=== PATIENT | female | born 1970 | race African-American/Black ===

== ENCOUNTER 2024-01-28 18:58 | Emergency (ER) | payer SELFPAY ==
[~2024-01-28] VITALS: Ht 167.6 cm; Wt 95.0 kg
[2024-01-28 19:04] VITALS: O2SAT 97
[2024-01-28] MEDS: ADENOSINE 3 MG/ML 2ML VIAL IV ONE (19:15)
[2024-01-28 20:57] LABS: BASOPHILS % 0.7 % (0.0-2.0); EOSINOPHILS % 1.1 % (0.0-5.0); HEMATOCRIT. 42.5 % (36.0-48.0); HEMOGLOBIN. 14.3 g/dL (12.0-16.0); LYMPHOCYTES % 37.9 % (20.0-50.0); MEAN CORPUSCULAR HEMOGLOBIN 30.8 pg (28.0-32.0); MEAN CORPUSCULAR HGB CONC 33.7 g/dL (31.0-37.0); MEAN CORPUSCULAR VOLUME 91.4 fL (81.0-99.0); MEAN PLATELET VOLUME 8.1 fl (7.4-10.4); MONOCYTES % 7.3 % (2.0-8.0); PLATELET 276 x1000/uL (130-400); RED BLOOD CELL COUNT 4.65 mill/uL (4.2-5.4); RED CELL DISTRIBUTION WIDTH 13.8 % (11.6-14.6); WHITE BLOOD COUNT 5.5 x1000/uL (4.5-11.0)
[2024-01-28 21:04] LABS: POTASSIUM 5.3 mEq/L (3.5-5.1)
[2024-01-28 21:05] LABS: CALCIUM 9.8 mg/dL (8.7-10.4)
[2024-01-28 21:15] LABS: THYROID STIMULATING HORMONE 3.09 uIU/mL (0.55-4.78)
[2024-01-28 21:37] VITALS: BP 138/78; PULSE 111; RESP 22; TEMP 98
== END 2024-01-28 22:03 | disposition home or self-care (01) ==
LOC: ER 18:58
DX: I47.10 Supraventricular tachycardia, unspecified (principal); I10 Essential (primary) hypertension
CPT/HCPCS: 99285; 96374; 71045; 80048; 84443; 85025; 36415; 93005; J0153